=== PATIENT | male | born 1970 | race Two or more races ===

== ENCOUNTER 2017-05-11 08:30 | Emergency (ER) | payer SELFPAY ==
[2017-05-11 08:32] VITALS: BMI 27.1
[2017-05-11 08:33] VITALS: TEMP 98.4; O2SAT 98
[2017-05-11 09:06] VITALS: BP 151/111; PULSE 90; RESP 16
== END 2017-05-11 09:15 | disposition left against medical advice (07) ==
LOC: H.ER 08:30
DX: Z02.89 Encounter for other administrative examinations (principal)